=== PATIENT | male | born 1960 | race Caucasian/White ===

== ENCOUNTER 2018-02-22 14:09 | Emergency (ER) | payer OTHER ==
[~2018-02-22] VITALS: Ht 177.8 cm; Wt 72.6 kg
[~2018-02-22 14:09] MED LIST: NAPR550 PO; Percocet 5-3251 EACH PO; ZESTORETIC 20-121 EA PO
[2018-02-22 15:19] LABS: Source, Urine Clean Catch
[2018-02-22 15:28] LABS: Appearance, Urine Clear (Clear); Bilirubin, Urine Neg (Neg); Blood, Urine Neg (Neg); Color, Urine Yellow (P-Yellow); Glucose Qualitative, Urine Neg (Neg); Ketones, Urine Neg (Neg); Leukocyte Esterase, Urine 3+ (Neg); Nitrite, Urine Neg (Neg); Protein, Urine 1+ (Neg); Urobilinogen, Urine NORM (Normal)
[2018-02-22 15:48] LABS: Bacteria Many /hpf; Red Blood Cells, Urine 0-2 /hpf (0-2); Squamous Epithelial Cells Rare /hpf (Few)
[2018-02-22] MEDS ORDERED: HYDR1TAB94 PO (15:53)
[2018-02-22] MEDS ORDERED: Cipro500 MG PO (15:53)
[2018-02-22] MEDS ORDERED: CYCL10 PO (15:53)
== END 2018-02-22 16:03 | disposition home or self-care (01) ==
LOC: ER 14:09
PROVIDERS: Physician Assistant
DX: N39.0 Urinary tract infection, site not specified (principal); M54.5 Low back pain; G89.29 Other chronic pain; I10 Essential (primary) hypertension; F17.210 Nicotine dependence, cigarettes, uncomplicated
CPT/HCPCS: 81001; 87077; 87086; 87186; 96372; 99283; J1885